=== PATIENT | female | born 1995 | race African-American/Black ===

== ENCOUNTER 2016-11-19 00:59 | Emergency (ER) | payer SELFPAY ==
[~2016-11-19] VITALS: Ht 165.1 cm; Wt 59.1 kg
[~2016-11-19 00:59] MED LIST: NOCURR
[2016-11-19 01:02] VITALS: BP 147/76
[2016-11-19] MEDS ORDERED: PNV11TAB PO (01:03)
[2016-11-19] MEDS ORDERED: POVIDONE-IODINE 10% 120 ML SOLUTION TP ONE (03:15)
[2016-11-19] MEDS ORDERED: PERTUSS(ACELL),DIPH,TET VAC/PF 0.5 ML VIAL IM ONE (03:15)
[2016-11-19] MEDS ORDERED: LIDOCAINE HCL 1% 10 ML VIAL INJ ONE (03:15)
[2016-11-19] MEDS ORDERED: BACITRACIN 0.9 GM PACKET OINTMENT TP ONE (05:15)
== END 2016-11-19 06:05 | disposition home or self-care (01) ==
LOC: EMS 01:01
DX: S51.811A Laceration without foreign body of right forearm, initial encounter (principal); F17.210 Nicotine dependence, cigarettes, uncomplicated; W25.XXXA Contact with sharp glass, initial encounter; Y93.89 Activity, other specified; Y92.89 Other specified places as the place of occurrence of the external cause; Y99.8 Other external cause status
CPT/HCPCS: 12002; 73090; 81025; 90471; 90715; 96372; 99284; J0690; J3490

== ENCOUNTER 2016-11-30 21:23 | Emergency (ER) | payer SELFPAY ==
[~2016-11-30] VITALS: Ht 157.5 cm; Wt 65.9 kg
[~2016-11-30 21:23] MED LIST changes: -NOCURR; +PNV11TAB PO
[2016-11-30 22:17] VITALS: BP 119/69
== END 2016-11-30 22:18 | disposition home or self-care (01) ==
LOC: EMS 21:31
DX: S51.811D Laceration without foreign body of right forearm, subsequent encounter (principal); F17.210 Nicotine dependence, cigarettes, uncomplicated; X58.XXXD Exposure to other specified factors, subsequent encounter; Y92.89 Other specified places as the place of occurrence of the external cause; Y99.8 Other external cause status
CPT/HCPCS: 99282